=== PATIENT | female | born 1955 | race Caucasian/White ===

== ENCOUNTER → 2024-04-27 08:47 | Outpatient (BNVA) | payer MEDICARE, SELFPAY | PROVIDERS: PCP Nurse Practitioner Family; Visit Provider Podiatrist Foot & Ankle Surgery | DX: M79.671 Pain in right foot (principal); M21.611 Bunion of right foot; M19.071 Primary osteoarthritis, right ankle and foot; M20.21 Hallux rigidus, right foot; M76.821 Posterior tibial tendinitis, right leg | CPT/HCPCS: 73630; 99203 ==

== ENCOUNTER → 2025-04-29 14:03 | Outpatient (BNVA) | payer MEDICARE, SELFPAY | PROVIDERS: PCP Nurse Practitioner Family; Visit Provider Podiatrist Foot & Ankle Surgery | DX: M20.11 Hallux valgus (acquired), right foot (principal); M20.21 Hallux rigidus, right foot | CPT/HCPCS: 99204 ==

== ENCOUNTER 2025-05-20 07:12 | Day surgery (SDC) | payer MEDICARE, SELFPAY ==
--- NOTE | 2025-05-20 | XR_ITS ---
WS: [id number] Exam: XR foot RT 2V [id number] Date/Time of Exam: 05/20/2025 12:00 AM Reason For Exam: Right foot first metatarsophalangeal joint arthrodesis CPT AP and lateral intraoperative C-arm images of the forefoot are presented. There is arthrodesis at the first MP joint with dorsal plate and screw fixation. An osteotomy along the medial margin of the distal first metatarsal noted.
[2025-05-20 07:22] VITALS: BP 115/77; PULSE 84; RESP 18; TEMP 36.4; O2SAT 97; BMI 22.6
--- NOTE | 2025-05-20 07:33 | P.HPUD_ITS ---
Surgery/Procedure H&P Update DATE OF PROCEDURE: May 20, 2025 DATE H&P PERFORMED: 04/29/25 H&P UPDATE INFORMATION: I have reviewed H&P completed within last 30 days, I have examined patient prior to procedure, No changes to prior documentation, H&P is in [facility] EMR on date indicated and Risks and benefits of the procedure reviewed PREOP DIAGNOSIS: Right hallux valgus PLANNED PROCEDURE: Operation Date: 05/20/25 08:40 Proposed Procedures p Right first metatarsophalangeal joint arthrodesis(Right) - Antonio Inman DPM
--- NOTE | 2025-05-20 07:38 | ANES.PREANE2 ---
Pre-Anesthetic Assessment Height/Weight: Height 1.55 m Weight 54.431 kg Temp Pulse Resp BP Pulse Ox O2 Del Method 97.6 F 84 18 115/77 97 Room Air 05/20/25 07:22 05/20/25 07:22 05/20/25 07:22 05/20/25 07:22 05/20/25 07:22 05/20/25 07:22 Preop Diagnosis: Right hallux valgus Operation Date: 05/20/25 08:40 Proposed Procedures p Right first metatarsophalangeal joint arthrodesis(Right) - Antonio Inman DPM Familial anesthetic complications: None Was Beta Kady taken within 24 hours: N/A Was Clonidine taken within 24 hours: N/A Last intake: Intake Last Liquid Date 05/19/25 Last Liquid Time 21:00 Last Solid Date 05/19/25 Last Solid Time 21:00 Social No alcohol and No tobacco Exam alert, oriented x 3, clear to auscultation bilaterally and regular rate & rhythm Metabolic Thyroid Disease (hx thyroid issues) Neuropsych 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 Anesthetic Plan ASA status: 2 Anesthesia: MAC Risk of > 500 ml blood loss (7ml/kg in children): No Medications/Allergies Home Medications ?Medication ?Instructions ?Recorded ?Confirmed ?Last Taken ?Type crutches #1 ea 04/29/25 04/29/25 Unknown Rx hydrocodone 5 mg-acetaminophen 325 1 tab PO Q6H PRN pain #28 tabs 05/20/25 Unknown Rx mg tablet Allergies Allergy/AdvReac Type Severity Reaction Status Date / Time No Known Allergies Allergy Verified 05/17/25 12:52 Current Medications Generic Name Dose Route Start Last Admin Trade Name Nicholasq PRN Reason Stop Dose Admin Sodium Chloride 1,000 mls @ 30 mls/hr 05/20/25 07:30 05/20/25 07:37 Sodium Chloride 0.9% IV 05/21/25 07:29 30 mls/hr .Q24H BRADLEY Administration PFSH Anesthesia Social History Smoking and tobacco/nicotine status: unknown if used tobacco/nicotine
[2025-05-20] MEDS: ceFAZolin 2,000 mg SDV 2000 MG IVP (07:51)
[2025-05-20] MEDS: BUPivacaine 0.5% INJ 30 mL XX (08:38)
--- NOTE | 2025-05-20 09:14 | P.OP_ITS ---
Operative Report Date of procedure: May 20, 2025 Surgeon: Antonio Inman DPM Procedure: Date of procedure: 05/20/2020 Pre-op diagnosis: Right foot hallux rigidus Post-op diagnosis: Same Post-op findings: Significant osteoarthritis first metatarsophalangeal joint with para-articular loose body Procedure done: Right foot first metatarsophalangeal joint arthrodesis CPT 62445 Implants: First metatarsophalangeal joint arthrodesis plate with 2.7 locking screws [employer] Specimens removed: Bone right first metatarsal phalangeal joint Surgeon: Dr. Antonio Inman DPM Heater Room Helper: Robert Estimated blood loss: 5 cc Tourniquet time: 60-minute Complications: None Patient is a 70-year-old female that has a history of right foot hallux rigidus. The patient has had the aforementioned chief complaint for some time. Conservative treatment measures have been attempted and the patient has opted for surgical intervention at this time. A lengthy discussion regarding the procedure, including risks and complications has been had with the patient and is noted in the recent clinic note. Written and verbal consent have been obtained. All patient questions have been answered to the patient?s satisfaction. No written or verbal guarantees have been given or implied. The patient has been NPO since midnight. The history has been reviewed and the history and physical is current. The signed consent was confirmed and placed in the patient chart. Patient imaging has been reviewed and is consistent with the diagnosis. Under mild sedation, the patient was brought into the operating room and placed on the table in the supine position. IV antibiotics were given by the anesthesia team as preoperative surgical prophylaxis. MAC sedation was then performed by the anesthesiateam. A pneumatic tourniquet was then placed about the right ankle. A local field block was performed using 0.5% Marcaine plain. The operative extremity was then prepped and draped in the usual fashion. The extremity was then elevated and exsanguinated before the tourniquet was inflated to 250 mmHg. After inflation, the following procedure was then performed. Attention was directed to the right first metatarsophalangeal joint where a 5 cm incision was made using a #15 blade. Dissection was carried down through subcutaneous of superficial fascia to the level of the metatarsophalangeal joint capsule which was incised to expose the underlying joint. Significant periarticular osteophyte formation was visualized. Intra-articular loose body to lateral aspect of joint was visualized. This was excised using a #15 blade. Combination of rongeur and sagittal bone saw was used to remove peritubular osteophyte formation. Next, cup and cone reamer were used to remove what small amount of articular cartilage was left of the first metatarsophalangeal joint. The site was then irrigated with copious amounts of sterile saline. 2 oh drill bit was then used to fenestrate the articular surfaces in preparation for arthrodesis. The hallux was then positioned into appropriate anatomic position before guidewire was used to temporarily fixate the area. A 0 degree first metatarsophalangeal joint arthrodesis plate from [employer] was applied. Distal holes were drilled and filled using 2.7 locking screws before the proximal compression hole of the plate was filled with 3.7 nonlocking screw. Good compression of the joint was noted. Remaining holes of the plate were drilled and filled using 2.7 locking screws. It was determined that lag screw was not needed. Wire was removed from first metatarsophalangeal joint site was irrigated with copious amounts of sterile saline. Attention was directed to closure. Deep tissue including capsular closure was performed using 3-0 Vicryl followed by subcuticular closure with 4-0 Vicryl and skin closure with 4-0 nylon in running interlocking fashion. The tourniquet was let down and good hyperemic response was noted all digits of the right foot. Incision was dressed with Xeroform, 4 x 4 gauze, Kerlix, Chan. The patient tolerated the procedure and anesthesia well and without complication. The patient was transported from the operating room to the recovery room with vital signs stable and vascular status intact to all digits of the right foot. The patient was given both written and verbal instructions to remain nonweightbearing to the operative extremity, to keep dressings/splint clean, dry and intact and to take pain medication as directed. The patient will follow-up in the outpatient setting at their scheduled appointment. The patient was discharged with my personal number and was instructed to call if any questions or issues should arise. They were discharged home once anesthesia criteria was met.
[2025-05-20 09:17] VITALS: BP 113/69; PULSE 76; RESP 12; TEMP 36.4; O2SAT 95
[2025-05-20 09:22] VITALS: BP 119/67; PULSE 70; RESP 15; O2SAT 93
[2025-05-20 09:27] VITALS: BP 124/70; PULSE 77; RESP 17; O2SAT 95
[2025-05-20 09:32] VITALS: BP 141/80; PULSE 72; RESP 17; TEMP 36.3; O2SAT 94
[2025-05-20 09:43] VITALS: BP 125/82; PULSE 78; RESP 18; O2SAT 97
--- NOTE | 2025-05-20 10:15 | ANE.PACU2 ---
Inpatient post-anesthesia follow up: Airway intact: Yes Vital signs: Temperature 97.3 F Pulse Rate 78 Respiratory Rate 18 Blood Pressure 125/82 Pulse Oximetry 97 Oxygen Delivery Me thod Room Air Oxygen Flow Rate Fraction of Inspir ed Oxygen Hydration adequate: Yes Nausea and vomiting: No Pain level: 1 Mental status: Baseline
== END 2025-05-20 10:15 | disposition home or self-care (01) ==
PROVIDERS: PCP Nurse Practitioner Family; Visit Provider Podiatrist Foot & Ankle Surgery
PROC: (CPT 28750; principal; 2025-05-20 08:30)
DX: M20.21 Hallux rigidus, right foot (principal); M19.071 Primary osteoarthritis, right ankle and foot; E07.9 Disorder of thyroid, unspecified; Z79.891 Long term (current) use of opiate analgesic
CPT/HCPCS: 28750; 73620; 76000; 88307; 88311; C1713; J0690; J2704; J3010; J3490; J7030; J9999

== ENCOUNTER → 2025-06-03 14:26 | Outpatient (BNVA) | payer MEDICARE, SELFPAY | PROVIDERS: PCP Nurse Practitioner Family; Visit Provider Podiatrist Foot & Ankle Surgery | DX: M20.21 Hallux rigidus, right foot (principal); M20.11 Hallux valgus (acquired), right foot; Z98.890 Other specified postprocedural states | CPT/HCPCS: 73630; 99024 ==

== ENCOUNTER → 2025-06-13 09:53 | Outpatient (BNVA) | payer MEDICARE, SELFPAY | PROVIDERS: PCP Nurse Practitioner Family; Visit Provider Podiatrist Foot & Ankle Surgery | DX: Z98.890 Other specified postprocedural states (principal); M20.11 Hallux valgus (acquired), right foot; M20.21 Hallux rigidus, right foot | CPT/HCPCS: 73630; 99024 ==

== ENCOUNTER → 2025-07-01 13:35 | Outpatient (BNVA) | payer MEDICARE, SELFPAY | PROVIDERS: PCP Nurse Practitioner Family; Visit Provider Podiatrist Foot & Ankle Surgery | DX: M20.11 Hallux valgus (acquired), right foot (principal); M20.21 Hallux rigidus, right foot | CPT/HCPCS: 73630; 99213 ==

== ENCOUNTER → 2025-07-16 09:19 | Outpatient (BNVA) | payer MEDICARE, SELFPAY | PROVIDERS: PCP Nurse Practitioner Family; Visit Provider Podiatrist Foot & Ankle Surgery | DX: M20.21 Hallux rigidus, right foot (principal); M20.11 Hallux valgus (acquired), right foot | CPT/HCPCS: 73630; 99024 ==